=== PATIENT | male | born 1965 | race African-American/Black ===

== ENCOUNTER 2019-05-12 12:01 | Emergency (ER) | payer SELFPAY ==
--- NOTE | 2019-05-12 13:59 | RAD ---
Examination: HIP RIGHT 2V WITH PELVIS, LUMBAR SPINE 2-3V History: Pain Comparison/Correlation: None Findings: Total 3 images of the lumbar spine were obtained. Frontal, lateral, and coned-down L5-S1 lateral views were obtained. Frontal view of pelvis, frontal view of the right hip, and frog-lateral views of the right hip were provided. Alignment is normal. Vertebral body heights are adequate. No fracture or bone destruction. Minimal spurring of the lumbar spine is present. Sacroiliac joints are symmetric and unremarkable. Hip joints are symmetric. No acute fracture or bone destruction. Impression: No significant degenerative change. No acute process. Consider further evaluation if occult process is a persistent concern. Electronically signed by: Vamsi Crockett MD (05/12/2019 1:56 PM) [facility]
[2019-05-12] MEDS ORDERED: CYCL10TA2 PO (14:35)
[2019-05-12] MEDS ORDERED: METH4TAB2 PO (14:35)
[2019-05-12] MEDS ORDERED: NAPR-514 PO (14:35)
--- NOTE | 2019-05-12 14:36 | PHYS DOC ---
Past Medical History Past Medical History: No Pertinent History (CAROLYN CORDERO DO) Past Surgical History: No Surgical History (CAROLYN CORDERO DO) Adult General Chief Complaint Chief Complaint: HIP PAIN HPI HPI Patient is a 54 year old male who presents to the ED today complaining of mild intermittent right hip pain radiating to the right lower extremity, symptoms began about ago. Patient reports history of chronic back pain. Denies any known injury. Denies any loss of bowel bladder function. Reports pain is worse on weight bearing to the right side (LOURDES PALOMINO APRN) Review of Systems Review of Systems Constitutional: Denies fever or chills [] GI: Denies abdominal pain, nausea, vomiting, bloody stools or diarrhea [] : Denies dysuria or hematuria [] Musculoskeletal: Reports right hip pain Integument: Denies rash or skin lesions [] Neurologic: Denies headache, focal weakness or sensory changes [] All other systems were reviewed and found to be within normal limits, except as documented in this note. (LOURDES PALOMINO APRN) Allergies Allergies Allergies Coded Allergies Type Severity Reaction Last Updated Verified No Known Drug Allergies 05/12/19 No (CAROLYN CORDERO DO) Physical Exam Physical Exam Constitutional: Well developed, well nourished, no acute distress, non-toxic appearance. [] Skin: Warm, dry, no erythema, no rash. [] Back: No tenderness, no CVA tenderness. Positive right leg straight raises Extremities: No tenderness, no cyanosis, no clubbing, ROM intact, no edema. [] Neurologic: Alert and oriented X 3, normal motor function, normal sensory function, no focal deficits noted. [] Psychologic: Affect normal, judgement normal, mood normal. [] (LOURDES PALOMINO APRN) EKG EKG [] (LOURDES PALOMINO APRN) Radiology/Procedures Radiology/Procedures []PROCEDURE: LUMBAR SPINE 2-3V Examination: HIP RIGHT 2V WITH PELVIS, LUMBAR SPINE 2-3V History: Pain Comparison/Correlation: None Findings: Total 3 images of the lumbar spine were obtained. Frontal, lateral, and coned-down L5-S1 lateral views were obtained. Frontal view of pelvis, frontal view of the right hip, and frog-lateral views of the right hip were provided. Alignment is normal. Vertebral body heights are adequate. No fracture or bone destruction. Minimal spurring of the lumbar spine is present. Sacroiliac joints are symmetric and unremarkable. Hip joints are symmetric. No acute fracture or bone destruction. Impression: No significant degenerative change. No acute process. Consider further evaluation if occult process is a persistent concern. Electronically signed by: Vamsi Jung MD (05/12/2019 1:56 PM) [facility] DICTATED and SIGNED BY: VAMSI JUNG MD DATE: 05/12/19 [id number] (LOURDES PALOMINO APRN) Course & Med Decision Making Course & Med Decision Making Pertinent Labs and Imaging studies reviewed. (See chart for details) This is a 54-year-old male patient presenting with right hip pain, no known injury. Right hip x-rays and lumbar spine x-rays interpreted by radiologist are negative for any acute findings. Discharged to home with cyclobenzaprine, naproxen and Medrol Dosepak. Provided orthopedic doctor for follow-up with (LOURDES PALOMINO APRN) Altaf Disclaimer Dragon Disclaimer This electronic medical record was generated, in whole or in part, using a voice recognition dictation system. (LOURDES PALOMINO APRN) Departure Departure Impression: Primary Impression: Right hip pain Disposition: HOME, SELF-CARE Condition: STABLE Referrals: NO PCP (PCP) ELODIA CLEMENTE MD follow up in 1-2 weeks Patient Instructions: Hip Pain Additional Instructions: Please take the prescribed medications as ordered. Try to ice and elevate the affected area. Follow-up with the provided doctor in 1-2 weeks. Scripts Methylprednisolone (MEDROL) 4 Mg Tab.ds.pk 1 PKG PO UD, #1 PKG Prov: LOURDES PALOMINO APRN 05/12/19 Naproxen (NAPROXEN) 500 Mg Tablet 1 TAB PO BID for pain, #20 TAB 0 Refills Prov: LOURDES PALOMINO APRN 05/12/19 Cyclobenzaprine Hcl (CYCLOBENZAPRINE HCL) 10 Mg Tablet 1 TAB PO TID, #30 TAB Prov: LOURDES PALOMINO APRN 05/12/19 Attending Signature Attending Signature I have reviewed the PA/INVENTORY SPECIALIST's note and plan of care. I was available for consultation as needed during the patient's visit in the emergency department. I agree with the clinical impression, plan, and disposition. (CORDERO,LOURDES TELLEZ APRN May 12, 2019 14:36 CAROLYN CORDERO DO May 12, 2019 15:35
== END 2019-05-12 14:41 | disposition home or self-care (01) ==
LOC: ER 12:01
DX: M25.551 Pain in right hip (principal)
CPT/HCPCS: 72100; 73502; 99284

== ENCOUNTER → 2021-02-14 | Outpatient (CLI) | payer OTHER ==
[~2021-02-14] MED LIST: CYCL10TA19 PO; METH4TAB2 PO; NAPR-514 PO
--- NOTE | 2021-02-14 12:32 | RAD ---
EXAM: Chest and right ribs, 4 views. HISTORY: Pain. COMPARISON: None. FINDINGS: A frontal view of the chest and 3 views of the right ribs are obtained. There is mild event ration of the left greater than right hemidiaphragms. There is no infiltrate, pleural effusion or pne umothorax. The heart is normal in size. There is callus formation surrounding nonunited posterior lat eral ninth and tenth rib fractures. There are suspected healed fifth and sixth rib fractures. IMPRESSION: Subacute appearing posterior lateral ninth and tenth rib fractures. No acute pulmonary fi nding. Electronically signed by: Sunita Tafoya MD (02/14/2021 12:29 PM) [id number]
== END ==
LOC: RAD 10:33
PROVIDERS: ATTEND Family Medicine
DX: S22.41XA Multiple fractures of ribs, right side, initial encounter for closed fracture (principal); X58.XXXA Exposure to other specified factors, initial encounter; Y93.89 Activity, other specified; Y92.89 Other specified places as the place of occurrence of the external cause; Y99.8 Other external cause status
CPT/HCPCS: 71101

== ENCOUNTER → 2021-08-01 | Outpatient (CLI) | payer OTHER ==
--- NOTE | 2021-08-01 10:34 | RAD ---
Study: CT lumbar spine without contrast INDICATION: Back pain. COMPARISON: Radiographs from 05/12/2019 TECHNIQUE: Axial CT imaging of the lumbar spine performed without the use of intravenous contrast. One or more of the following individualized dose reduction techniques were utilized for this examinat ion: 1. Automated exposure control 2. Adjustment of the mA and/or kV according to patient size 3. Use of iterative reconstruction technique. FINDINGS: No acute or aggressive osseous abnormality. No listhesis. No significant loss of disc space height. M ild scattered endplate osteophytic ridging. Sclerosis of the anterior/superior corner of T12-L3 and g reatest at L3. Mild arthrosis of the SI joints. Incompletely characterized arthrosis at the right hip . Scattered calcific atherosclerosis. Mild prominence of the prostate gland measured at 4.4 cm transver se. T12-L1: Mild facet arthrosis greater on the right. No significant osseous central canal or neural for aminal stenosis. L1-L2: Mild facet arthrosis. No significant osseous central canal or neural foraminal stenosis. L2-L3: Mild facet arthrosis slightly greater on the left. Mild ligamentum flavum hypertrophy. Probabl e mild disc bulge. Central canal stenosis estimated at mild. Mild narrowing of the bilateral neural f oramina. L3-L4: Mild facet arthrosis and ligamentum flavum hypertrophy. There appears be mild disc bulge estim ated mild/moderate central canal stenosis and mild bilateral neural foraminal narrowing. L4-L5: Left eccentric disc bulge with a component of peripheral mineralization. Mild facet arthrosis and ligamentum flavum hypertrophy. Estimated mild/moderate central canal stenosis as well as a compon ent of left lateral recess stenosis. Mild left more so than right neural foraminal narrowing. L5-S1: Posterior disc bulge. Minimal facet arthrosis. Estimated mild canal stenosis and mild left and minimal right osseous neural foraminal narrowing. IMPRESSION: 1. No acute osseous abnormality. Vertebral body sclerosis at the anterior/superior corners of T12 th rough L3, greatest at L3, is nonspecific and may be entirely degenerative but this appearance can be seen with a seronegative spondyloarthropathy. Correlate with patient history. Note is made that there is only mild arthrosis at the SI joints without typical stigmata of sacroiliitis. 2. Incompletely evaluated central canal stenosis without intrathecal contrast. The lumbar canal is m ildly narrowed on a developmental basis. Estimated mild/moderate central canal stenosis at L3-L4 and L4-L5. Mostly mild scattered osseous neural foraminal narrowing. There is a left eccentric disc bulge at L4-L5 which narrows the left lateral recess. Eventual MRI or CT myelogram would allow for better characterization if deemed necessary. Electronically signed by: PACO ROSENTHAL MD (08/01/2021 10:31 AM) [facility]
== END ==
LOC: CT 09:13
PROVIDERS: ATTEND Family Medicine
DX: M47.817 Spondylosis without myelopathy or radiculopathy, lumbosacral region (principal); M47.815 Spondylosis without myelopathy or radiculopathy, thoracolumbar region; M48.07 Spinal stenosis, lumbosacral region; M51.27 Other intervertebral disc displacement, lumbosacral region
CPT/HCPCS: 72131